=== PATIENT | female | born 1960 | race Caucasian/White ===

== ENCOUNTER 2018-12-15 16:13 | Emergency (ER) | payer OTHER ==
[~2018-12-15] VITALS: Ht 170.2 cm; Wt 78.5 kg
[2018-12-15 16:13] VITALS: BP 112/68
[2018-12-15] MEDS: ONDANSETRON 4 MG TAB.RAPDIS SL ONE ×2 (17:00→17:30)
[2018-12-15] MEDS ORDERED: ONDANSETRON 4 MG TAB.RAPDIS ONE (17:04)
--- NOTE | 2018-12-15 18:10 | NUR ---
Patient discharged to home in stable condition. Written and verbal after care instructions given. Patient verbalizes understanding of instruction.
== END 2018-12-15 18:34 | disposition home or self-care (01) ==
LOC: ER 16:19
DX: S13.8XXA Sprain of joints and ligaments of other parts of neck, initial encounter (principal); F12.120 Cannabis abuse with intoxication, uncomplicated; F10.129 Alcohol abuse with intoxication, unspecified; Y90.9 Presence of alcohol in blood, level not specified; Z98.890 Other specified postprocedural states; Z60.2 Problems related to living alone; X58.XXXA Exposure to other specified factors, initial encounter; Y93.89 Activity, other specified; Y92.89 Other specified places as the place of occurrence of the external cause; Y99.8 Other external cause status
CPT/HCPCS: 93005; 99283; Q0162